=== PATIENT | female | born 2000 | race Caucasian/White ===

== ENCOUNTER → 2023-07-11 10:38 | Outpatient (REF) | payer OTHER, SELFPAY ==
[2023-07-11 12:59] LABS: Hepatitis B Surface Antibody Positive
[2023-07-14 18:18] LABS: Quantiferon Mitogen minus NIL 9.88 IU/mL; Quantiferon NIL 0.03 IU/mL; Quantiferon TB Gold Plus Negative (Negative)
== END ==
LOC: OHS 10:38
PROVIDERS: ATTENDING PHYSICIAN Nurse Practitioner
DX: Z23 Encounter for immunization (principal)
CPT/HCPCS: 36415; 86480; 86706

== ENCOUNTER 2024-06-05 12:06 | Emergency (ER) | payer OTHER, SELFPAY ==
[2024-06-05 12:19] VITALS: BP 121/72
[2024-06-05 15:08] VITALS: BP 105/74
--- NOTE | 2024-06-05 15:17 | ED.GENMED ---
History of Present Illness
General
Chief Complaint: Swelling
Source: patient
Exam Limitations: none
Time Seen by Provider: 06/05/24 15:08
Nursing documentation reviewed up to this point in time: agreed with
History of Present Illness
History of Present Illness:
Patient to ED with complaint of swelling to left posterior elbow. Noticed this past week. Denies any redness or pain. Denies fever/chills, recent trauma. She had surgery to elbow 2 years ago. Ulnar plate is present. Brought self to ED for eval.
Past History
Past History
ED Past Medical History: None
ED Past Surgical History: Orthopedic (ORIF left proximal ulna)
Social History
Tobacco: Non-smoker
Review of Systems
Review of Systems
Allergies reviewed?: Yes
All Other Systems: ROS reviewed and negative except as documented in HPI and ROS
Constitutional: Reports no symptoms
Musculoskeletal: Reports no symptoms (Full nonpainful ROM to left elbow)
Skin: Reports other (Non painful soft lump on left posterior elbow at site of prior surgery)
Neurological: Reports no symptoms
Psychiatric: Reports no symptoms
Phy Exam
General Physical Exam
General Presentation: well appearing and no apparent distress
General age: appears stated age
General Skin: warm and dry
General Habitus: normal
Musculoskeletal Exam
Musculoskeletal Exam: full ROM and neuro vasc intact
Skin Exam
Skin Exam: normal color, warm/dry, no rash and other (Nonpainful soft lump to left posterior elbow. No redness at site. Appearance of cyst.)
Psychiatric Exam
Psychiatric Exam: normal mood/affect
Course
Orders/Labs/Results
Orders:
Orders
06/05/24 12:21
CR Elbow - Left Min 3 Views Urgent
Comment:
Reason For Exam: swelling
Vital Signs
Initial and Last Documented VS:
Initial Vital Signs
Temp Pulse Resp BP Pulse Ox
98.9 F 83 18 121/72 100
06/05/24 12:19 06/05/24 12:19 06/05/24 12:19 06/05/24 12:19 06/05/24 12:19
Last Documented Vital Signs
Temp Pulse Resp BP Pulse Ox
98.9 F 66 16 105/74 100
06/05/24 12:19 06/05/24 15:08 06/05/24 15:08 06/05/24 15:08 06/05/24 15:08
*Radiology
Radiology exam reviewed: radiology read reviewed
*Pulse Oximetry
Patient hypoxic: no
*Critical Care Note
Total Time (30-74mins, 75-104mins- exclusive of procedures): Not Applicable
Update Note
Update Note:
Patient to ED for eval of lump on posteior left elbow. PMH ORIF to left proximal ulna, plate intact. NO redness or pain. No recent trauma. No fever/chills. Full ROM to joing. Sensation intact. Xray reviewed, no concerning findings. Lump
resembles soft fluid filled cyst. SHe has an appointment with Dr. Phoenix in 2 weeks, he did her original surgery.. She will call fredy AM to attempt to move appt. up. Risk of introducing infection over surgical site outweighs benefit of aspiration
at this time. Since site is no causing her any issues, recommend holding off until visit with ortho. SHe was given instructions on s/s to return to ED and she is agreeable to plan
ED Attending Note
-
Portions of this chart may have been created with voice recognition software.� Occasional wrong word or��sound alike� substitutions may have occurred due to the inherent limitations of voice recognition software.
Discharge Plan
Departure
Patient Disposition: Home (Routine Discharge)
Date of Disposition: 06/05/24
Time of Disposition: 15:13
Patient with high blood pressure during this ER visit?: No
Condition: Good
Covid-19: Not Applicable
Discharge Problem:
Elbow swelling
Instructions: Swollen Joints
Prescriptions:
No Action
No Meds [No Current Medications]
0 mg PO DAILY
Referrals:
Gerson Phoenix MD [Active] - Call in 1-3 days for appt
UNKNOWN - PT DOES,NOT KNOW [Family Provider] -
Activity Restrictions/Additional Instructions:
Return to the emergency department immediately for fever/chills, redness, pain to your elbow, or for any further concerns.
Interventions
Interventions:
*Risk Screen - Suicide Last Done: 06/05/24 12:22
*General Assessment Last Done: 06/05/24 12:19
*Neglect/Abuse Screening Last Done: 06/05/24 15:02
ED- Fall Risk Assessment Last Done: 06/05/24 15:02
*ED COVID-19 Vaccine History Last Done: 06/05/24 15:02
ED- Cardiac Assessment Last Done: 06/05/24 15:02
ED- Pulmonary Assessment Last Done: 06/05/24 15:02
ED-Skin Assessment Last Done: 06/05/24 15:02
Discharge Date and Time
Print Language: [id number]
[2024-06-05 15:42] VITALS: BP 106/74
== END 2024-06-05 15:30 | disposition home or self-care (01) ==
LOC: EMR 12:06
PROVIDERS: EMERGENCY PHYSICIAN Emergency Medicine
DX: M25.422 Effusion, left elbow (principal); F41.9 Anxiety disorder, unspecified; F32.A Depression, unspecified; Z91.51 Personal history of suicidal behavior
CPT/HCPCS: 99283; 73080